=== PATIENT | male | born 1965 | race African-American/Black ===

== ENCOUNTER 2020-06-02 12:27 | Emergency (ER) | payer OTHER ==
[2020-06-02] MEDS ORDERED: SODIUM CHLORIDE 1,000 ML IV STA (12:29)
[2020-06-02] MEDS ORDERED: ONDANSETRON 4 MG/2 ML VIAL IVPUSH ONE (12:29)
[2020-06-02] MEDS ORDERED: KETOROLAC TROMETHAMINE 30 MG/1 ML VIAL IVPUSH ONE (12:29)
--- NOTE | 2020-06-02 12:32 | PDOC ---
Rapid Medical Evaluation Time Seen by Provider: 06/02/20 12:29 Medical Evaluation: 06/02/20 12:31 CC: sudden onset of sharp left flank pain with n/v this am, no hx of renal colic or gu hx Exam: left cva tenderness, active vomiting in triage Plan: labs, ivf, zofran, toradol, spiral ct and urine Discharge Disposition - Diagnosis Left flank pain - Referrals - Patient Instructions - Post Discharge Activity
[2020-06-02 12:37] VITALS: TEMP 97.2; BMI 24.9
[2020-06-02] MEDS ORDERED: KETOROLAC TROMETHAMINE 30 MG/1 ML VIAL ONE (12:54)
[2020-06-02] MEDS ORDERED: morphine CARPU-JECT 4 MG/1 ML DISP.SYRIN IVPUSH ONE (13:07)
[2020-06-02] MEDS ORDERED: morphine SULFATE 4 MG/ML VIAL ONE (13:10)
--- NOTE | 2020-06-02 13:12 | PDOC ---
History of Present Illness - General Chief Complaint: Pain, Acute Stated Complaint: PAIN Time Seen by Provider: 06/02/20 12:29 History Source: Patient Exam Limitations: No Limitations - History of Present Illness Initial Comments: HPI: This is a 54 y/o male with PMH of pre-diabetes presenting today due to sudden onset left lower quadrant abdominal pain which started at approximately 10 am when he was sitting at his computer. The patient describes the pain as non-radiating, sharp, constant, but fluctuating in intensity. Sitting up makes the pain better and laying down makes it worse. It is accompanied by nausea and vomiting x2. The patient denies hematuria, or personal history of kidney stones. ROS: General: No fevers or chills CardioVascular: No chest pain or shortness of breath Gastrointestinal: Yes nausea and vomiting Genitourinary: No dysuria or hematuria Abdomen: LLQ abdominal pain PMH: Pre-diabetes Meds: Wellbutrin Allergies: Denies PE: GENERAL: The patient is awake, alert, and fully oriented, in significant pain LUNGS: Breath sounds equal, clear to auscultation bilaterally. No wheeze/crackles. HEART: Regular rate and rhythm, normal S1 and S2 without murmur or rub. ABDOMEN: Abdomen non-tender, no masses. MDM: 54 y/o male with no hx of kidney stones presenting due to sudden onset left lower abdominal pain. 5mm stone at left UVJ 06/02/20 13:09 Patients pain controlled with 30mg ketorolac and 4mg morphine Creatinine level fine Waiting on urine sample 06/02/20 15:14 Urine ok Patient understands to follow-up with urology Motrin and Tramadol for pain control at home Past History - Medical History Allergies/Adverse Reactions: Allergies Allergy/AdvReac Type Severity Reaction Status Date / Time No Known Allergies Allergy Verified 06/02/20 12:31 Home Medications: Ambulatory Orders Ibuprofen 600 mg PO QID PRN #30 tablet 06/02/20 Tramadol HCl 50 mg PO BID PRN #5 tablet MDD 2 tabs 06/02/20 traMADol HCL [Ultram -] 50 mg PO Q8H PRN #5 tablet MDD 150 06/02/20 COPD: No - Immunization History Immunization Up to Date: Yes - Psycho-Social/Smoking History Smoking History: Unknown if ever smoked - Substance Abuse Hx (Audit-C & DAST Scrn) How often the patient has a drink containing alcohol: Never Score: In Men: 4 or > Positive; In Women: 3 or > Positive: 0 Screen Result (Pos requires Nsg. Audit-10AR): Negative *Physical Exam - Vital Signs Last Vital Signs Temp Pulse Resp BP Pulse Ox 97.2 F L 88 16 189/111 H 99 06/02/20 12:32 06/02/20 12:32 06/02/20 12:32 06/02/20 12:32 06/02/20 12:32 ED Treatment Course - LABORATORY CBC & Chemistry Diagram: 06/02/20 12:56 06/02/20 12:56 - Medications Given in the ED: ED Medications Discontinued Medications Generic Name Dose Route Start Last Admin Trade Name Freq PRN Reason Stop Dose Admin Ketorolac Tromethamine 30 mg 06/02/20 12:29 06/02/20 13:04 Toradol Injection - IVPUSH 06/02/20 12:30 30 mg ONCE ONE Administration Ondansetron HCl 4 mg 06/02/20 12:29 06/02/20 13:04 Zofran Injection IVPUSH 06/02/20 12:30 4 mg ONCE ONE Administration Discharge - Discharge Information Problems reviewed: Yes Clinical Impression/Diagnosis: Left flank pain, Kidney stone on left side Condition: Improved Disposition: HOME - Admission No - Additional Discharge Information Prescriptions: Ibuprofen 600 mg PO QID PRN #30 tablet PRN Reason: Pain Tramadol HCl 50 mg PO BID PRN #5 tablet MDD 2 tabs PRN Reason: Severe Pain traMADol HCL [Ultram -] 50 mg PO Q8H PRN #5 tablet MDD 150 PRN Reason: Pain - Follow up/Referral Referrals: Rigoberto Galindo MD [Staff Physician] - - Patient Discharge Instructions Patient Printed Discharge Instructions: DI for Kidney Stones Additional Instructions: You were evaluated in the ED for left abdominal pain. We did a physical exam, gave you fluids, managed your pain, and did a CAT scan which showed a 5mm stone at the left utero-vesicular junction. Follow-up with urology in the next few days. You can alternate motrin and tylenol for pain management. Tramadol 50mg also sent to your pharmacy. Return to the ED with any new or worsening symptoms. - Post Discharge Activity
[2020-06-02 13:51] LABS: BASO % 0.3 % (0-2.0); EOS % 0.2 % (0-4.5); HEMATOCRIT 44.2 % (35.4-49); HEMOGLOBIN 14.4 GM/dL (11.7-16.9); LYMPH % 20.4 % (8-40); MCH 28.4 pg (25.7-33.7); MCHC 32.5 g/dl (32.0-35.9); MEAN CELL VOLUME 87.5 fl (80-96); MONO % 6.2 % (3.8-10.2); NEUT % 72.9 % (42.8-82.8); PLATELET COUNT 219 K/MM3 (134-434); RBC 5.05 M/mm3 (4.00-5.60); RDW 15.3 % (11.9-15.9); WHITE BLOOD COUNT 6.7 K/mm3 (4.0-10.0)
[2020-06-02 14:15] LABS: ALBUMIN 4.1 g/dl (3.4-5.0); BILIRUBIN,TOTAL 0.4 mg/dL (0.2-1); CALCIUM 9.4 mg/dL (8.5-10.1); CREATININE 1.1 mg/dL (0.55-1.3); POTASSIUM 4.5 mmol/L (3.5-5.1)
--- NOTE | 2020-06-02 14:19 | PDOC ---
Attending Attestation - Resident Resident Name: Iman Jones - ED Attending Attestation I have performed the following: I have examined & evaluated the patient, The case was reviewed & discussed with the resident, I agree w/resident's findings & plan - HPI HPI: 06/02/20 14:15 54y/o healthy M p/w acute onset L flank/abd pain around 1030am while seated at home. pain constant with sharp exacerbations, associated with nausea/vomiting, seen at urgent care then referred to ED. no h/o kidney stone. does take Ca supplements daily. sister has kidney stones. currently improved after pain meds. - Physicial Exam PE: 06/02/20 14:18 vss, bp elevated while in pain at triage, will repeat alert, nad no jaundice/pallor s1s2 rrr, ctab soft/nd/nt bs nl. no cvat no hernia/ exam normal - Medical Decision Making 06/02/20 14:18 54y/o M with acute onset L flank/abd pain. presentation could be most c/w renal colic, r/o colitis/diverticulitis. labs, ua ctap confirms 5mm L UVJ stone pain control reassess and dispo accordingly Discharge - Discharge Information Problems reviewed: Yes Clinical Impression/Diagnosis: Left flank pain, Kidney stone on left side Condition: Improved Disposition: HOME - Additional Discharge Information Prescriptions: Ibuprofen 600 mg PO QID PRN #30 tablet PRN Reason: Pain Tramadol HCl 50 mg PO BID PRN #5 tablet MDD 2 tabs PRN Reason: Severe Pain traMADol HCL [Ultram -] 50 mg PO Q8H PRN #5 tablet MDD 150 PRN Reason: Pain - Follow up/Referral Referrals: Rigoberto Galindo MD [Staff Physician] - - Patient Discharge Instructions Patient Printed Discharge Instructions: DI for Kidney Stones Additional Instructions: You were evaluated in the ED for left abdominal pain. We did a physical exam, gave you fluids, managed your pain, and did a CAT scan which showed a 5mm stone at the left utero-vesicular junction. Follow-up with urology in the next few days. You can alternate motrin and tylenol for pain management. Tramadol 50mg also sent to your pharmacy. Return to the ED with any new or worsening symptoms. - Post Discharge Activity
[2020-06-02 15:24] LABS: PH,URINE >= 9.0 (5.0-8.0); URINE APPEARANCE CLEAR; URINE BILIRUBIN NEGATIVE (NEGATIVE); URINE COLOR YELLOW; URINE GLUCOSE (UA) NEGATIVE (NEGATIVE); URINE KETONE TRACE (NEGATIVE); URINE LEUK ESTERASE NEGATIVE (NEGATIVE); URINE NITRITE NEGATIVE (NEGATIVE); URINE PROTEIN NEGATIVE (NEGATIVE)
[2020-06-02 15:34] VITALS: BP 136/76; PULSE 62
[2020-06-02] MEDS ORDERED: ACETAMINOPHEN 1000 MG/100 ML VIAL (NON FORMULARY) IVPB ONE (15:42)
[2020-06-02] MEDS ORDERED: ACETAMINOPHEN INJECTION 100 ML IVPB ONE (15:45)
== END 2020-06-02 16:26 | disposition home or self-care (01) ==
LOC: JER 12:27
PROC: 3E033NZ Introduction of Analgesics, Hypnotics, Sedatives into Peripheral Vein, Percutaneous Approach (ICD-10-PCS; principal; 2020-06-02)
PROC: 3E033GC Introduction of Other Therapeutic Substance into Peripheral Vein, Percutaneous Approach (ICD-10-PCS; 2020-06-02)
PROC: 3E0337Z Introduction of Electrolytic and Water Balance Substance into Peripheral Vein, Percutaneous Approach (ICD-10-PCS; 2020-06-02)
DX: N20.0 Calculus of kidney (principal)
CPT/HCPCS: 36415; 74176-TC; 80053; 81003; 85025; 87086; 99285-25; J0131